=== PATIENT | female | born 1955 | race Caucasian/White ===

== ENCOUNTER → 2016-03-02 | Outpatient (CLI) | payer MEDICARE, OTHER ==
[2016-03-02 17:51] LABS: Non-African American GFR(MDRD) >60 (>60 ml/min/1.73 sqM)
--- NOTE | 2016-03-02 20:33 | MR ---
MRI of the brain with and without contrast HISTORY: Headaches. COMPARISON: CT brain and CT angiogram 08/19/2015 TECHNIQUE: T1-weighted sagittal, T2, FLAIR, and diffusion axial, postcontrast T1 axial and coronal vi ews of the brain are submitted. CONTRAST: 15 mL of MultiHance FINDINGS: There is no evidence of acute ischemia. The ventricles, basal cisterns, and sulci overlying the co nvexities are consistent with the patient's age. There is no mass effect or enhancing mass. Craniocervical junction maintained. Sella turcica has a normal appearance. There is nodular enhancement of the right MCA bifurcation. No cerebellopontine angle mass. Nonspecific high signal along the inner table of right parietal yakelin rium of doubtful significance. There is no midline shift. There is a focal area of abnormal signal within the kayla most typical remote ischemic change. White matter: There are approximately 8 areas of abnormal signal scattered throughout the white matte r bilaterally. Lesions measure less than 5 mm. No enhancing lesions. No callosal lesions. No lesions perpendicular to the ventricular system. IMPRESSION: 1. No acute intracranial process. 2. Findings suggest remote area of ischemia involving the kayla. 3. Nonspecific white matter changes can be seen with hypertension. Remote microvascular ischemia and demyelinating process also in the differential diagnosis. 4. Nodular enhancement of the right MCA bifurcation. MRA [place] of [place] recommended to exclude smal l aneurysm.
== END | disposition home or self-care (01) ==
LOC: RADMRIMAIN 16:59
PROVIDERS: ATTEND Family Medicine
DX: R90.89 Other abnormal findings on diagnostic imaging of central nervous system (principal); Z13.9 Encounter for screening, unspecified
CPT/HCPCS: 82565; 70553; A9577

== ENCOUNTER → 2016-03-26 | Outpatient (CLI) | payer MEDICARE, OTHER ==
--- NOTE | 2016-03-26 17:01 | MR ---
EXAMINATION TYPE: MR angio head wo con DATE OF EXAM: 03/26/2016 2:49 PM COMPARISON: Prior MRI brain 02 March 2016 HISTORY: Headaches TECHNIQUE: Time of flight images focusing on the [place] were performed without contrast. Th ree-dimensional reconstructions. FINDINGS: Internal carotid arteries, vertebrobasilar system are patent. Left vertebral artery is gustavo nant. No evident aneurysm, vasculitis, or vascular malformation IMPRESSION: Unremarkable MRA brain
== END ==
LOC: RADMRIMAIN 14:23
PROVIDERS: ATTEND Family Medicine
DX: R93.8 Abnormal findings on diagnostic imaging of other specified body structures (principal)
CPT/HCPCS: 70544

== ENCOUNTER → 2016-06-29 | Outpatient (CLI) | payer MEDICARE, OTHER ==
--- NOTE | 2016-06-29 13:15 | XR ---
EXAMINATION TYPE: XR chest 2V DATE OF EXAM: 06/29/2016 12:56 PM COMPARISON: 06/21/2014 TECHNIQUE: PA and lateral views submitted. HISTORY: Shortness of breath FINDINGS: The lungs are clear and there is no pneumothorax, pleural effusion, or focal pneumonia. Atheroscler otic change aorta. Arthropathy of the AC joints. Hypertrophic and degenerative change of the spine. S urgical clips in the right upper quadrant. DeGraff tiny punctate granuloma right lower lobe. IMPRESSION: 1. No acute process. 2. Tiny punctate granuloma right lower lobe.
== END | disposition home or self-care (01) ==
LOC: RADXRMAIN 12:38
PROVIDERS: ATTEND Family Medicine
DX: J84.10 Pulmonary fibrosis, unspecified (principal)
CPT/HCPCS: 71020

== ENCOUNTER → 2016-08-03 | Outpatient (CLI) | payer MEDICARE, OTHER ==
--- NOTE | 2016-08-05 10:11 | MM ---
Reason for exam: screening (asymptomatic). Last mammogram was performed 1 year and 1 month ago. History: Patient is postmenopausal. Physical Findings: A clinical breast exam by your physician is recommended on an annual basis and results should be correlated with mammographic findings. MG 3D Screening Mammo W/Cad Bilateral CC and MLO view(s) were taken. Prior study comparison: July 08, 2015, bilateral MG 3d diag mammo w/cad [facility]. June 27, 2014, bilateral MG screening mammo w CAD. June 21, 2013, bilateral MG screening mammo w CAD. There are scattered fibroglandular densities. No significant changes when compared with prior studies. ASSESSMENT: Negative, BI-RAD 1 RECOMMENDATION: Routine screening mammogram of both breasts in 1 year.
== END | disposition home or self-care (01) ==
LOC: RADMAMWWP 13:44
PROVIDERS: ATTEND Family Medicine
DX: Z12.31 Encounter for screening mammogram for malignant neoplasm of breast (principal)
CPT/HCPCS: 77063; G0202

== ENCOUNTER 2016-09-02 23:39 | Emergency (ER) | payer MEDICARE, OTHER ==
[2016-09-02 23:46] VITALS: RESP 18; TEMP 99
[2016-09-03] MEDS ORDERED: LABETALOL 5 MG/ML VIAL MDV IVP STA (00:06)
--- NOTE | 2016-09-03 00:09 | ED ---
General Adult HPI - General Chief complaint: Recheck/Abnormal Lab/Rx Stated complaint: hypertension Time Seen by Provider: 09/03/16 00:01 Source: patient Mode of arrival: ambulatory Limitations: no limitations - History of Present Illness Initial comments: This 60-year-old white female presents with a complaint of high blood pressure. She states that she's been taking an at home and it has been elevated for the past couple of days. Her systolic will arrange around 220. She states that she will get a slight headache diffusely. She denies any other symptoms. She denies any chest pain, shortness of breath, abdominal pain, fevers, or infections. She does relate that she has been under increased stress recently as her fianc is ill currently. She tried increasing her lisinopril from 5 mg once a day to 10 mg twice a day. She has been on the lisinopril for over a year. It normally works quite well for her. She denies missing any doses. She denies any change in diet. No other complaints or modifying factors. - Related Data Home Medications Medication Instructions Recorded Confirmed Methadone [Dolophine] 100 mg PO Q12HR 06/21/14 09/02/16 clonazePAM [KlonoPIN] 0.25 mg PO DAILY 06/21/14 09/02/16 Lisinopril [Prinivil] 5 mg PO DAILY 09/02/16 09/02/16 Allergies Allergy/AdvReac Type Severity Reaction Status Date / Time No Known Allergies Allergy Verified 09/02/16 23:45 Review of Systems ROS Statement: Those systems with pertinent positive or pertinent negative responses have been documented in the HPI. ROS Other: All systems not noted in ROS Statement are negative. Past Medical History Past Medical History: Hypertension Additional Past Medical History / Comment(s): Hep C History of Any Multi-Drug Resistant Organisms: None Reported Past Surgical History: Appendectomy, Cholecystectomy, Hysterectomy Past Psychological History: Anxiety Smoking Status: Current every day smoker Past Alcohol Use History: None Reported Past Drug Use History: None Reported General Exam - General Exam Comments Initial Comments: GENERAL: The patient is well nourished and well hydrated. VITAL SIGNS: Heart rate, blood pressure, respiratory rate reviewed as recorded in nurse's notes. EYES: Pupils are round and reactive. Extraocular movements are intact. No conjunctival / lid redness or swelling. ENT: No external evidence of injury, swelling, or ecchymosis. Airway is patent. Throat is clear. NECK: Nontender. No swelling or evidence of injury. No subcutaneous emphysema. Trachea is midline. No thyroid mass. HEART: Regular rate and rhythm. Good peripheral pulses. LUNGS/CHEST: Breath sounds clear and equal bilaterally. No rales, rhonchi, or wheezes. No ecchymosis, subcutaneous emphysema, or tenderness. ABDOMEN: Abdomen soft without tenderness. No palpable masses or organomegaly. No peritoneal signs. No abdominal wall swelling or ecchymosis. EXTREMITIES: No extremity tenderness. Normal muscle tone and function. No thoracolumbar tenderness. NEUROLOGIC: Sensation is grossly intact. Cranial nerve exam reveals face is symmetrical, tongue is midline, speech is clear. SKIN: No abrasions or ecchymosis is noted. No induration or masses noted. PSYCHIATRIC: Alert and oriented. Appropriate behavior and judgment. Limitations: no limitations Course Vital Signs 09/02/16 09/03/16 23:40 01:03 Temperature 99.0 F Pulse Rate 93 73 Respiratory 18 Rate Blood Pressure 215/92 167/77 O2 Sat by Pulse 99 Oximetry Medical Decision Making - Medical Decision Making The patient was seen and examined. All diagnostics were reviewed. She does receive some IV labetalol. Her blood pressure came down quite well with the labetalol and she is feeling much better on recheck. She had an EKG which shows a normal sinus rhythm at a rate of 76. There is some T-wave inversions in lead V1 through V3. The MD interval is 144, QRS duration is 76, and the QTC intervals 427. Attempts are made at accessing prior EKGs but these would not download from the service observer. I discussed her EKG findings with her and she relates that she has been told this multiple times previously and has been worked up for this with normal results. She still informed that she should follow-up with her primary doctor in regard to these EKG findings for them to compare as well and she'll follow up on Monday. The laboratory came back all essentially within normal limits. Overall, it is felt as though she is stable for discharge and leaves in no identifiable distress. She is counseled regarding her diagnosis in detail. Is felt as though it could be a degree stress-related. It is also felt as though she should continue taking the lisinopril 10 mg twice a day and continue with a blood pressure log and follow up with her doctor on Monday. - Lab Data Result diagrams: 09/03/16 00:40 09/03/16 00:40 Lab Results 09/03/16 09/03/16 Range/Units 00:40 00:40 WBC 9.1 (3.8-10.6) k/uL RBC 4.90 (3.80-5.40) m/uL Hgb 14.7 (11.4-16.0) gm/dL Hct 42.7 (34.0-46.0) % MCV 87.1 (80.0-100.0) fL MCH 30.0 (25.0-35.0) pg MCHC 34.4 (31.0-37.0) g/dL RDW 13.5 (11.5-15.5) % Plt Count 191 (150-450) k/uL Neutrophils % 66 % Lymphocytes % 25 % Monocytes % 6 % Eosinophils % 1 % Basophils % 1 % Neutrophils # 6.0 (1.3-7.7) k/uL Lymphocytes # 2.3 (1.0-4.8) k/uL Monocytes # 0.5 (0-1.0) k/uL Eosinophils # 0.1 (0-0.7) k/uL Basophils # 0.1 (0-0.2) k/uL Sodium 143 (137-145) mmol/L Potassium 4.0 (3.5-5.1) mmol/L Chloride 104 (98-107) mmol/L Carbon Dioxide 26 (22-30) mmol/L Anion Gap 13 mmol/L BUN 11 (7-17) mg/dL Creatinine 0.80 (0.52-1.04) mg/dL Est GFR (MDRD) Af Amer >60 (>60 ml/min/1.73 sqM) Est GFR (MDRD) Non-Af >60 (>60 ml/min/1.73 sqM) Glucose 92 (74-99) mg/dL Calcium 9.7 (8.4-10.2) mg/dL Total Bilirubin 0.5 (0.2-1.3) mg/dL AST 32 (14-36) U/L ALT 43 (9-52) U/L Alkaline Phosphatase 72 (38-126) U/L Total Protein 7.8 (6.3-8.2) g/dL Albumin 4.9 (3.5-5.0) g/dL Disposition Clinical Impression: Hypertensive crisis, Headache, Anxiety Disposition: HOME SELF-CARE Condition: Good Instructions: Hypertension (ED), Anxiety (ED) Additional Instructions: Please take your lisinopril at 10 mg twice daily. Please continue with a blood pressure log and follow up with her doctor on Monday in regard to further recommendations. Referrals: Chencho Duke DO [Primary Care Provider] - 09/05/16 Time of Disposition: 02:06
[2016-09-03 01:02] LABS: Basophils # (A) 0.1 k/uL (0-0.2); Basophils % (A) 1 %; CH 29.6; CHCM 34.2; Eosinophils # (A) 0.1 k/uL (0-0.7); Eosinophils % (A) 1 %; HCT 42.7 % (34.0-46.0); HDW 2.74; HGB 14.7 gm/dL (11.4-16.0); Luc # (Auto) 0.15; Luc % (Auto) 2; Lymphocytes # (A) 2.3 k/uL (1.0-4.8); Lymphocytes % (A) 25 %; MCHC 34.4 g/dL (31.0-37.0); MCV 87.1 fL (80.0-100.0); Mean Platelet Volume 7.6; Monocytes # (A) 0.5 k/uL (0-1.0); Monocytes % (A) 6 %; Neutrophils % (A) 66 %; RDW 13.5 % (11.5-15.5); WBC 9.1 k/uL (3.8-10.6); WBC (Perox) 9.67
[2016-09-03 01:12] LABS: ALT 43 U/L (9-52); AST 32 U/L (14-36); Alkaline Phosphatase 72 U/L (38-126); Anion Gap 13 mmol/L; Blood Urea Nitrogen 11 mg/dL (7-17); Calcium 9.7 mg/dL (8.4-10.2); Carbon Dioxide 26 mmol/L (22-30); Chloride 104 mmol/L (98-107); Glucose 92 mg/dL (74-99); Non-African American GFR(MDRD) >60 (>60 ml/min/1.73 sqM); Sodium 143 mmol/L (137-145); Total Bilirubin 0.5 mg/dL (0.2-1.3); Total Protein 7.8 g/dL (6.3-8.2)
[2016-09-03 02:05] VITALS: BP 133/68; PULSE 65
== END 2016-09-03 02:26 | disposition home or self-care (01) ==
LOC: EC 23:39
DX: I16.9 Hypertensive crisis, unspecified (principal); F41.9 Anxiety disorder, unspecified; F17.200 Nicotine dependence, unspecified, uncomplicated; Z79.891 Long term (current) use of opiate analgesic; Z79.899 Other long term (current) drug therapy
CPT/HCPCS: 36415; 80053; 85025; 93005; 96374; 99283; 99284

== ENCOUNTER → 2016-12-26 | Outpatient (CLI) | payer MEDICARE, OTHER ==
--- NOTE | 2016-12-26 13:04 | EST ---
EXERCISE STRESS AGE: 61 SEX: F HT: 61" WT: 137 PROTOCOL: Erik Exercise Stress Test STAGE: I DURATION OF EXERCISE: 4:30 HEART RATE REST: 83 BLOOD PRESSURE REST: 190/77 MAXIMUM HEART RATE ACHIEVED: 141 MAXIMUM BLOOD PRESSURE: 198/84 85% MPHR: 135 100% MPHR: 159 METS: 6.4 INDICATIONS: Valve issue, family history CLINICAL INFORMATION: Patient was exercised for a total area of 4 minutes and 30 seconds. The peak heart rate of 141, was achieved. Maximum blood pressure 198/84 mmHg was noted. Resting EKG shows normal sinus rhythm with normal AL interval and QRS duration and normal ST-T waves. No ST-segment depression suggestive of ischemia was noted. No dysrhythmias are noted. FINAL IMPRESSION: 1. This exercise test is not suggestive of ischemia. 2. Patient's exercise tolerance is below average. 3. Patient did not complain of any chest pain during the test. MMODL / IJN: [id number] /
== END | disposition home or self-care (01) ==
LOC: RADNMMAIN 11:12
PROVIDERS: ATTEND Family Medicine
DX: R07.89 Other chest pain (principal)
CPT/HCPCS: 93017